=== PATIENT | male | born 2000 | race Caucasian/White ===

== ENCOUNTER 2022-11-14 08:41 | Emergency (ER) | payer BC, SELFPAY ==
[2022-11-14 08:58] VITALS: BP 132/88; PULSE 73; RESP 18; TEMP 36.4; O2SAT 100
[2022-11-14 08:59] VITALS: BP 132/88; PULSE 73; RESP 18; TEMP 36.4; O2SAT 100
--- NOTE | 2022-11-14 09:05 | ED.URI ---
HPI - URI/Sore Throat General Chief Complaint: Upper Respiratory Infection Stated Complaint: Sinus Infecton Time Seen by Provider: 11/14/22 09:00 Source: patient and RN notes reviewed Mode of arrival: ambulatory Limitations: no limitations History of Present Illness HPI Narrative: Patient presents today complaining of a 10 day history of sinus pressure, nasal congestion, postnasal drip. She did have a fever initially up to 101.3, but it has not been present for 1 week. She has been taking Sudafed, which has been providing some relief. 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 Related Data Home Medications Medication Instructions Recorded Confirmed norethindrone acetate 1.5 1 tablet PO DAILY 11/14/22 11/14/22 mg-ethinyl estradiol 30 mcg tablet (Junel) sertraline 200 mg capsule 200 mg PO DAILY 11/14/22 11/14/22 Allergies Allergy/AdvReac Type Severity Reaction Status Date / Time No Known Allergies Allergy Verified 11/14/22 08:56 Review of Systems Review of Systems: CONSTITUTIONAL: Denies body aches, chills, or sweats.+ fever EYES: Denies visual changes, redness, or discharge. ENT: Denies rhinorrhea, sore throat, or otalgia.+ congestion, sinus pressure, postnasal drip CARDIOVASCULAR: Denies chest pain, palpitations, or edema. RESPIRATORY: Denies cough or dyspnea. GASTROINTESTINAL: Denies abdominal pain, nausea, vomiting, or diarrhea. GENITOURINARY: Denies dysuria or hematuria. SKIN: Denies rash, itching, or wounds. MUSCULOSKELETAL: Denies back pain, joint pain, or myalgia. NEUROLOGIC: Denies headache, numbness, tingling, or weakness. PSYCH: Denies depression or anxiety. PMFSH Comments At time of signature, I have reviewed and agree with nursing past medical, surgical, social and family history unless otherwise noted. Please see nursing chart for further information. There is no relevant family history pertinent to the presenting complaint Exam Narrative: GENERAL: Mildly ill-appearing, well-nourished, and in no acute distress. HEAD: Normocephalic, atraumatic. EYES: EOMI. No redness or drainage. Conjunctivae normal. ENT: Mucous membranes pink and moist. Nares congested with rhinorrhea. TMs normal bilaterally. Throat normal. Uvula midline. Frontal and maxillary sinus tenderness. NECK: Normal AROM. Supple. No lymphadenopathy. CHEST: No respiratory distress. Clear to auscultation. HEART: Regular rate and rhythm. No murmur appreciated. EXTREMITIES: Normal range of motion. No edema. SKIN: Warm, dry, no rash. Capillary refill normal. Normal skin turgor. NEURO: No focal deficits. Alert and oriented x3. Gait steady. PSYCH: Normal affect. No signs of depression or anxiety. Course Course Level of Care: Express Care Visit Vital Signs Vital signs: Vital Signs Temperature 97.5 F L 11/14/22 08:58 Pulse Rate 73 11/14/22 08:58 Respiratory Rate 18 11/14/22 08:58 Blood Pressure 132/88 11/14/22 08:58 Pulse Oximetry 100 11/14/22 08:58 Oxygen Delivery Room Air 11/14/22 08:58 Temperature 97.5 F L 11/14/22 08:59 Pulse Rate 73 11/14/22 08:59 Respiratory Rate 18 11/14/22 08:59 Blood Pressure 132/88 11/14/22 08:59 Pulse Oximetry 100 11/14/22 08:59 Oxygen Delivery Room Air 11/14/22 08:59 Reviewed. Pt has been instructed to follow up with her PCP regarding her elevated blood pressure today. MDM - URI/Sore Throat MDM Narrative Medical decision making narrative: Patient will be treated with Augmentin for sinusitis. No testing indicated at this time. Anticipatory guidance given. Differential Diagnosis Differential diagnosis: Likely upper respiratory infection, sinusitis and viral infection Critical Care Time Critical Care Time Critical Care Time: No Discharge Plan Discharge Clinical Impression: Sinusitis Qualifiers: Sinusitis location: unspecified location Chronicity: acute Recurrence: non-recurrent Qualified Code(s): J01.90
== END 2022-11-14 09:11 | disposition home or self-care (01) ==
PROVIDERS: Emergency Provider Nurse Practitioner
DX: J01.90 Acute sinusitis, unspecified (principal)
CPT/HCPCS: 99213; G0463

== ENCOUNTER 2024-06-09 08:13 | Outpatient (RCR) | payer BC, SELFPAY ==
[2024-06-09 09:15] LABS: Beta HCG Quantitative 315.26 mIU/ML
== END 2024-09-07 23:59 | disposition home or self-care (01) ==
LOC: ANHOBOP 08:13
PROVIDERS: PCP Physician Assistant; Visit Provider Obstetrics & Gynecology
DX: Z36.9 Encounter for antenatal screening, unspecified (principal)
CPT/HCPCS: 36415; 84702

== ENCOUNTER 2024-06-11 07:47 | Outpatient (RCR) | payer BC, SELFPAY ==
[2024-06-07 17:16] LABS: Beta HCG Quantitative 182.61 mIU/ML
[2024-06-11 08:45] LABS: Beta HCG Quantitative 655.86 mIU/ML
== END 2024-06-20 09:08 | disposition home or self-care (01) ==
LOC: ANHLAB 07:47
PROVIDERS: Visit Provider Obstetrics & Gynecology
DX: O36.0130 Maternal care for anti-D [Rh] antibodies, third trimester, not applicable or unspecified (principal); O20.0 Threatened abortion
CPT/HCPCS: 36415; 84702; 85461; 86850; 86900; 86901

== ENCOUNTER 2024-06-22 06:45 | Outpatient (RCR) | payer BC, SELFPAY ==
[2024-06-20 10:19] LABS: Beta HCG Quantitative 4787.20 mIU/ML
[2024-06-22 08:00] LABS: Beta HCG Quantitative 4471.00 mIU/ML
== END 2024-09-18 23:59 | disposition home or self-care (01) ==
LOC: ANHLAB 06:45
PROVIDERS: PCP Physician Assistant; Visit Provider Obstetrics & Gynecology
DX: O02.81 Inappropriate change in quantitative human chorionic gonadotropin (hCG) in early pregnancy (principal)
CPT/HCPCS: 36415; 84702

== ENCOUNTER 2024-06-24 15:34 | Outpatient (CLI) | payer BC, SELFPAY ==
--- OUTSIDE RECORDS SUMMARY | 2024-06-24 17:30 | XMS_ITS | Referral Summary ---
Author Organization [address] Address [address] [place] [phone] Care Team Providers Care Nutrition Technician Name Role Phone Radha Tavarez Primary Care Provider [phone] Encounters Date Type Department Care Team Description 05/13/2024 2:30 PM CDT Office Visit [facility] Family Medicine [address] [place] [phone] Radha Tavarez PA Routine adult health maintenance (Primary Dx); Mild episode of recurrent major depressive disorder; FREEMAN (generalized anxiety disorder); Migraine without aura and without status migrainosus, not intractable from Last 3 Months Allergies No known active allergies Medications multivitamin (MULTIPLE VITAMINS ORAL) Take 1 tablet by mouth daily Active pseudoephedrine (SUDAFED) 30 mg tablet Take 1 tablet (30 mg total) by mouth every 4 (four) hours as needed for congestion Active rimegepant (NURTEC ODT) tablet,disinteg rating Take 1 tablet (75 mg total) by mouth daily as needed 3 Active SUMAtriptan (IMITREX) 50 mg tablet Take 1 tablet (50 mg total) by mouth Active sertraline (ZOLOFT) 100 mg tabletIndicatio ns:Mild episode of recurrent major depressive disorder,FREEMAN (generalized anxiety disorder) Take 2 tablets (200 mg total) by mouth daily 180 tablet 3 5 Active Active Problems Problem Noted Date Diagnosed Date Migraine without aura and wi thout status migrainosus, not intractable 04/17/2023 Assessment & Plan (05/13/2024 2:52 PM CDT): Chronic and improved now that her stress level is much lower. No longer has to follow with ENT or take propranolol for prevention. Continue sumatriptan Nurtec as needed. She can reach out to me for refills as needed. Assessment & Plan (04/17/2023 9:24 AM COFFIN MAKER): Chronic. Managed by ENT. Continue current management with propranolol for prevention and Nurtec and sumatriptan as needed. Follow-up with ENT as scheduled. Update me with any changes. FREEMAN (generalized anxiety disorder) 04/17/2023 Assessment & Plan (05/13/2024 2:47 PM CDT): Chronic and controlled. Continue Zoloft 200 mg daily. Follow-up in 1 year sooner as needed. Assessment & Plan (04/17/2023 9:23 AM COFFIN MAKER): Chronic and controlled. Continue Zoloft 200 mg daily. Handout provided today with a list of counselors, should she want to explore this. Follow-up in 1 year sooner as needed. Mild episode of recurrent major depressive disor scotty 04/17/2023 Assessment & Plan (05/13/2024 2:47 PM CDT): Chronic and controlled. Continue Zoloft 200 mg daily. Follow-up in 1 year sooner as needed. Assessment & Plan (04/17/2023 9:24 AM COFFIN MAKER): Chronic and controlled. Continue Zoloft 200 mg daily. Handout provided today with a list of counselors, should she want to explore this. Follow-up in 1 year sooner as needed. Routine adult health maintenance 04/14/2023 Overview (05/13/2024): Health Maintenance: -PCV20: N/A -Tdap vaccine: 2020 -Influenza vaccine: due -Shingles vaccine: N/A -Colonoscopy: N/A -Last WWE: 12/29/22 -Last Mammogram: N/A -Last DEXA: N/A -Last eye exam: N/A -Last MHA: N/A Assessment & Plan (05/13/2024 2:52 PM CDT): Health Maintenance: -PCV20: N/A -Tdap vaccine: 2020 -Influenza vaccine: due -Shingles vaccine: N/A -Colonoscopy: N/A -Last WWE: 12/29/22 -Last Mammogram: N/A -Last DEXA: N/A -Last eye exam: N/A -Last MHA: N/A Patient is up-to-date on health maintenance. Continue with healthy diet and exercise habits. See me annually for routine physicals. Assessment & Plan (04/17/2023 9:24 AM COFFIN MAKER): Health Maintenance: -PCV20: N/A -Tdap vaccine: 2020 -Influenza vaccine: 2022 -Shingles vaccine: N/A -Colonoscopy: N/A -Last WWE: 12/29/22 -Last Mammogram: N/A -Last DEXA: N/A -Last eye exam: N/A -Last MHA: N/A Patient is up-to-date on health maintenance. Annual labs ordered. Continue with healthy diet and exercise habits. See me annually for routine physicals. Immunizations Immunization Administration Dates Next Due DTaP 12/14/2002, 0,04/24/1999,02/01,1998 HPV, Unspecified 09/20/2016,08/19/2015 HPV9 11/04/2017 Hep A, Pediatric 12/09/2010,06/02/2010 Hep B Vaccine 07/31/1999,02/01/1999,1998 HiB 02/02/2000, 0,02/01/1999,11/30 Influenza LAIV (Nasal) 11/19/2011,12/09/2010, Influenza, Live, Trivalent, Intranasal 2,12/09/2010,12/23/2009 Influenza, Quadrivalent, Spl it, Intramuscular 11/04/2017 Influenza, Quadrivalent, Spl it, Preservative Free, Intramuscular 12/27/2021,01/25/2021,01/29/2020,12/30 Influenza, Trivalent, IM (MDV) 12/30/2018 Influenza, Unspecified 01/18/2024(Deferr ed: Patient Refused),02/17/2023 MMR 09/20/2016,09/02/2003,10/18/1999 Meningococcal MCV4P (Menactra) 08/19/2015,1999 PPD TEST 08/27/2019,08/01/2017,10/18/1999 Polio, Unspecified 12/14/2002, 0,02/01/1999,11/27 Tdap 06/05/2019,10/14/2009 Varicella 08/17/2012,10/18/1999 Social History Tobacco Use Types Packs/Day Years Used Date Smoking Tobacco: Never Smokeless Tobacco: Never Tobacco Cessation:Counseling Given: Not Answered AUDIT-C Answer Date Recorded Q1: How often do you have a drink containing alc ohol? Monthly or less 04/17/2023 Q2: How many drinks containi ng alcohol do you have on a typical day when you are drinking? 3 or 4 04/17/2023 Q3: How often do you have si x or more drinks on one occasion? Never 04/17/2023 PHQ-2 Answer Date Recorded PHQ-2 Total Score (If total score is 3 or more points, staff should administer the PHQ-9) 0 05/13/2024 PHQ-9 Answer Date Recorded PHQ-9 Total Score 2 05/13/2024 Comments No Sex and Gender Information Value Date Recorded Sex Assigned at Not on file Legal Sex Female 12:21 PM COFFIN MAKER Gender Identity Female 04/14/2023 2:49 PM COFFIN MAKER Sexual Orientation Straight 04/14/2023 2: 49 PM COFFIN MAKER Last Filed Vital Signs Vital Sign Reading Time Taken Comments Blood Pressure 120/84 05/13/2024 2:37 PM CDT Pulse 85 05/13/2024 2:37 PM CDT Temperature 36.7 C (98.1 F) 05/13/2024 2:37 PM CDT Respiratory Rate 18 05/13/2024 2:37 PM CDT Oxygen Saturation 97% 05/13/2024 2:37 PM CDT Inhaled Oxygen Concentration - - Weight 68.9 kg (152 lb) 05/13/2024 2:37 PM CDT Height 167.6 cm (5' 6 ) 05/13/2024 2:37 PM CDT Body Mass Index 24.53 05/13/2024 2:37 PM CDT Plan of Treatment Not on file Procedures Procedure Name Priority Date/Time Associated Diagnosis Comments PAP SMEAR Routine 12/29/2022 from Last 3 Months or Most Recently Relevant to Health Maintenance Results * HM PAP SMEAR (12/29/2022) SCRIBED Pap test normal Thin Prep-Cervical/ Endocervical [facility] Provider MD HEALTH MAINTENANCE Final Result from Last 3 Months or Most Recently Relevant to Health Maintenance Insurance [employer] ACCESS Care Teams Nutrition Technician Relationship Specialty Start Date End Date Radha Tavarez PA [address] [place], [place] [address] PCP - General Family Medicine 04/04/23
--- OUTSIDE RECORDS SUMMARY | 2024-06-24 17:30 | XMS_ITS | Data Portability ---
Author Organization [facility], autoContract - [facility] Address [address] [place] [address] Care Team Providers Care Sales Merchandiser Name Role Phone ALYMARILYN CEBALLOS Primary Care Provider Assessment No assessment recorded. Plan of Treatment Reminders Order Date Submit Date Provider Last Modified By Organization Details Last Modified Time Details Appointments None recorded. Lab None recorded. Referral None recorded. Procedures None recorded. Surgeries None recorded. Imaging None recorded. Medication Orders sertraline 100 mg tablet 2022 023 [id number] [employer], [address], [place], [address], 17:55:42 Patient TargetsNo targets recorded. Patient InstructionsNo instructions recorded. Reason for Referral None Reported. Problems No Known Problems Medical Equipment None Reported. Allergies No known drug allergies Medications Name Sig Start Date Stop Date Status Note LastModified by Organization Details LastModified Time sertraline 100 mg tablet TAKE 2 TABLETS BY MOUTH EVERY DAY FOR 90 DAYS active Not Available Not Available No t Available sumatriptan 50 mg tablet TAKE 1 TABLET BY MOUTH ONCE A DAY NEEDED active Not Available Not Available No t Available amoxicillin 875 mg-potassium clavulanate 125 mg tablet active Not Available Not Available Not Available 1.5/30 (28) 1.5 mg-30 mcg (21)/75 mg (7) tablet TAKE 1 TABLET BY MOUTH EVERY DAY CONTINUOUSL Y FOR 12 WEEKS ON 1 WEEK OFF active Not Available Not Available No t Available Vitals Date Recorded Body weight Body temperature Heart rate Respiratory rate Oxygen saturation Oxygen saturation in Arterial blood by Pulse oximetry Body mass index (BMI) Body height Systolic blood pressure Diastolic blood pressure Provider Name and Address Organization Details Last Updated DateTime 3 88351.4 4 g 98.2 [degF] 82 /min 18 /min 99 % 99 % 24.6 kg/m2 167.64 cm 100 mm[Hg] 60 mm[Hg] Myesha Connor LPN [facility] 3 17:29:22 Social History None recorded. Functional Status None recorded. Mental Status None recorded. Family History Nothing Reported Notes:Denies Medical History Condition Response ANXIETY DISORDER Y DEPRESSION (INCLUDING POST ) Y Gynecological History Statement/Question Response Date of Last Pap Smear Obstetrics History GPAL:G 0 P 0 0 0 0 Past Encounters Encounter ID Performer Location Encounter Start Date Encounter Closed Date Diagnosis/Indication Diagnosis SNOMED-CT Code Diagnosis ICD10 Code Diagnosis Note [id number] Marilyn Aly NP [facility] [address] [facility] [place] [id number] 05/12/2022 17:16:37 05/12/2022 18:02:42 Depressive disorder 84098157 F32.A continue with sertraline 100 mg, 2 tablets daily po fu in 6 mos Health Concerns Section Related Observation LastModified by Organization Detai ls LastModified Time None Recorded Concern Status LastModified by Organization Details LastModified Time None Recorded Advance Directives Directive None Recorded Payers Encounter Date Sequence Insurance Name Policy Number Policy Rodrigues Covered Member ID Rodrigues Member ID Guarantor Name 05/12/2022 1 [place] [id number] Blake Weber [id number] Isabella Weber Notes Date Note Type Note Provider Name and Address Organization Details Recorded Time 05/12/2022 text/html establish care b p 100/60, BMI 24.6, pt needs medication refills, pt has been on sertraline 200 mg since 2018, and is symptoms stable, pt sees deep sea diver for bcp Marilyn Aly NP [address] [facility] [address], [place], [phone], [facility] 05/12/2022 18:00:35 OBGyn Episode No OBEpisode recorded.
--- OUTSIDE RECORDS SUMMARY | 2024-06-24 17:30 | XMS_ITS | Clinical Summary ---
Author Organization [address] Address [address] [place] [phone] Care Team Providers Care Summer Law Associate Name Role Phone Radha Tavarez Primary Care Provider [phone] [phone] Allergies No known active allergies Medications multivitamin [...] needed. Assessment & Plan (04/17/2023 9:24 AM SERVICE GIRL): Chronic. Managed by ENT. Continue current management with propranolol for prevention and Nurtec and sumatriptan as needed. Follow-up with ENT as scheduled. Update me with any changes. FREEMAN (generalized anxiety disorder) 04/17/2023 Assessment & Plan (05/13/2024 2:47 PM CDT): Chronic and controlled. Continue Zoloft 200 mg daily. Follow-up in 1 year sooner as needed. Assessment & Plan (04/17/2023 9:23 AM SERVICE GIRL): Chronic and controlled. Continue Zoloft 200 mg [...] needed. Assessment & Plan (04/17/2023 9:24 AM SERVICE GIRL): Chronic and controlled. Continue Zoloft 200 mg [...] physicals. Assessment & Plan (04/17/2023 9:24 AM SERVICE GIRL): Health Maintenance: -PCV20: N/A -Tdap vaccine: 2019 -Influenza vaccine: 2022 -Shingles vaccine: N/A -Colonoscopy: N/A -Last WWE: 12/29/22 -Last Mammogram: N/A -Last DEXA: N/A -Last eye exam: N/A -Last MHA: N/A Patient is up-to-date on health maintenance. Annual labs ordered. Continue with healthy diet and exercise habits. See me annually for routine physicals. Encounters Date Type Department Care Team Description 05/13/2024 2:30 PM CDT Office Visit [facility] Family Medicine [address] [place] [phone] Radha Tavarez PA Routine adult health maintenance (Primary Dx); Mild episode of recurrent major depressive disorder; FREEMAN (generalized anxiety disorder); Migraine without aura and without status migrainosus, not intractable from Last 3 Months Immunizations Immunization Administration Dates Next Due DTaP [...] Unspecified 12/14/2002, 0,02/01/1999,11/27 Tdap 06/05/2019,10/14/2009 Varicella 08/17/2012,10/18/1999 Medical History Medical History Date Comments Anxiety Depression Migraines Family History Medical History Relation Name Comments ADD / ADHD Brother No Known Problems Father Alzheimer's disease Maternal Grandfather Grandpa Hearing loss Maternal Grandmother Grandma Mary Jo No Known Problems Mother Cancer Paternal Grandmother Grandma Gladis Relation Name Status Comments Brother Alive Father Alive Maternal Grandfather Grandpa Maternal Grandmother Grandma Mary Jo Mother Alive Paternal Grandmother Grandma Gladis Social History Tobacco Use Types Packs/Day Years [...] on file Legal Sex Female 12:21 PM SERVICE GIRL Gender Identity Female 04/14/2023 2:49 PM SERVICE GIRL Sexual Orientation Straight 04/14/2023 2: 49 PM SERVICE GIRL Obstetrics History Last Filed Vital Signs Vital Sign Reading [...] 05/13/2024 2:37 PM CDT Plan of Treatment Health Maintenance Due Date Last Done Comments Hepatitis C Screening 1998 Covid-19 Vaccine ( season) 2023 01/25/2021, 06/22/2020, 05/19/2020 Influenza Vaccine (#1) 2023 , 12/27/2021, 01/25/2021, Additional history exists Depression Screening 05/13/2025 05/13/2024, 05/13/2024, 04/17/2023, Additional history exists Regular Well Visit/Exam 18-64 05/13/2025 05/13/2024, 04/17/2023 Cervical Cancer Screening 12/29/2025 12/29/2022 DTaP/Tdap/Td Vaccine (8 - Td or Tdap) 06/04/2029 06/05/2019, 10/14/2009, 12/14/2002, Additional history exists Hepatitis B Screening Completed 07/31/1999 , 02/01/1999, 1998 Varicella Vaccines Completed 08/17/2012, 10/18/1999 HPV Vaccines Completed 11/04/2017, 09/03, 08/19/2015 Pneumococcal vaccine <65 Aged Out No longer eligible based on patient's age to complete this topic Procedures Procedure Name Priority Date/Time Associated Diagnosis Comments HM PAP SMEAR Routine 12/29/2022 from Last 3 Months or Most Recently Relevant to Health Maintenance Results * HM PAP SMEAR (12/29/2022) SCRIBED Pap test normal Thin Prep-Cervical/ Endocervical us Historical Provider MD HEALTH MAINTENANCE Final Result from Last 3 Months or Most Recently Relevant to Health Maintenance Insurance [employer] ACCESS Care Teams Summer Law Associate Relationship Specialty Start Date End Date Radha Tavarez PA [address] [place], [place] [phone] PCP - General Family Medicine 04/04/23
--- OUTSIDE RECORDS SUMMARY | 2024-06-24 17:30 | XMS_ITS | Clinical Summary ---
Author Organization [facility] Address [address] [place] [address] Care Team Providers Care Sulfonation Equipment Operator Name Role Phone None, Physician Primary Care Provider Unavailabl e Source Comments [facility],non-owned Affiliates and Associated Physician Practices is amultiple site organization consisting of ambulatory clinics and hospital sitesin [place], [place], [place] and [place]. This disclosure is being madepursuant to the Care Everywhere program and may not contain all information available regarding this patient. Last updated 17.[employer] [facility] Allergies No known active allergies Medications * Be aware that medications may not be up to date on this document. Alwaysverify current medications with the patient. sertraline (Zoloft) 100 MG tablet Take 2 (two) tablets by mouth once daily Active norethin-eth estradiol-FE ([place] Fe 1.5/30) 1.5-30 MG-MCG tablet Take 1 (one) tablet by mouth once daily Active Multiple Vitamin (MULTIVITAMIN ADULT PO) Take 1 tablet by mouth once daily Active SUMAtriptan (Imitrex) 50 MG tablet Take 1 (one) tablet by mouth daily as needed - may repeat one time for Migraine Maximum daily dose: 200mg/24 hours Active pseudoephedrine (Sudafed) 30 MG tablet Take 1 (one) tablet by mouth every 4 hours as needed for Nasal Congestion Active rizatriptan (Maxalt) 10 MG tablet Take 1 tab at the onset of migraine, may repeat x 1 dose after 2 hours if needed. Not to exceed more than 2 tabs in 24 hours. 10 tablet 3 3 Active Additional Information Patient taking differently: 10 mg Oral ONCE PRN, Take 1 tab at the onset of migraine, may repeat x 1 dose after 2 hours if needed. Not to exceed more than 2 tabs in 24 hours., Reported on 02/16/2023 fluticasone propionate (Flonase) 50 MCG/ACT nasal spray [place] 2 (two) sprays into each nostril once daily 48 g 4 3 Active propranolol (Inderal) 10 MG tablet TAKE 1 (ONE) TABLET BY MOUTH 2 TIMES DAILY 180 tablet 1 4 Active Nurtec 75 MG tablet DISSOLVE 1 TABLET ON OR UNDER THE TONGUE ONCE A DAY NEEDED FOR MIGRAINE (. MAX OF 1 TABLET IN 24 HOURS) 16 tablet 3 4 Active Active Problems No known active problems Encounters Date Type Department Care Team Description 04/19/2024 Refill [facility] - ENT [address], [address] [place] [address] Krysten Rausch, KUAR-INSURANCE BILLING CLERK Refill Request from Last 3 Months Family History Medical History Relation Name Comments Hyperlipidemia Father Hypertension Father Relation Name Status Comments Father Social History Tobacco Use Types Packs/Day Years Used Date Smoking Tobacco: Never Smokeless Tobacco: Never Tobacco Cessation:Counseling Given: Not Answered Alcohol Use Standard Drinks/Week Comments Yes 1 (1 standard drink = 0.6 oz pur e alcohol) 4 monthly Comments Unknown Sex and Gender Information Value Date Recorded Sex Assigned at Not on file Legal Sex Female 11:43 AM CDT Gender Identity Not on file Sexual Orientation Not on file Last Filed Vital Signs Vital Sign Reading Time Taken Comments Blood Pressure 136/86 12/22/2022 9:01 AM CDT Pulse 96 12/22/2022 9:01 AM CDT Temperature - - Respiratory Rate - - Oxygen Saturation - - Inhaled Oxygen Concentration - - Weight 68 kg (150 lb) 02/16/2023 9:17 AM MANAGER ONCOLOGY Height 167.6 cm (5' 6 ) 02/16/2023 9:17 AM MANAGER ONCOLOGY Body Mass Index 24.21 02/16/2023 9:17 AM MANAGER ONCOLOGY Plan of Treatment Health Maintenance Due Date Last Done Comments PAP SMEAR 1998 HIV SCREENING 2013 HPV VACCINE (1 - 3-dose series) 2013 HEPATITIS C SCREENING 10/08/2016 DTAP/TDAP/TD VACCINES (1 - Tdap) 2017 HEPATITIS B VACCINE (1 of 3 - 19+ 3-dose series) 2017 COVID-19 VACCINE (1 - 2023-2 5 season) 2023 CHLAMYDIA/GONORRHEA SCREENING 12/30/2023, 12/29/2022 DEPRESSION SCREENING 03/06/2024 INFLUENZA VACCINE (Season Ended) 2024 ZOSTER VACCINE (1 of 2) 2048 HIB VACCINE Aged Out No longer eligi ble based on patient's age to complete this topic MENINGOCOCCAL (Group B) VACCINE SHARED DECISION-MAKING Aged Out No longer eligible based on patient's age to complete this topic MENINGOCOCCAL GROUPS A/C/Y/W VACCINE Aged Out No longer eligible b ased on patient's age to complete this topic PNEUMOCOCCAL VACCINE Aged Out No long er eligible based on patient's age to complete this [place] [id number] MARIANO MARIANO Care Teams Sulfonation Equipment Operator Relationship Specialty Start Date End Date None, Physician [address] [place] [address] PCP - General 12/22/22
--- OUTSIDE RECORDS SUMMARY | 2024-06-24 17:30 | XMS_ITS | Data Portability ---
Author Organization [facility] [place] Address [address] [address] [place] [address] Care Team Providers Care Oil Burner Name Role Phone KATH SIMON Primary Care Provider Assessment Encounter Date Assessment Date Assessment LastModified by Organization Details LastModified Time 12/29/2022 12/29/2022 Annual gynecological exam performed. Patient will come back in a year unless there are new symptoms. Not available 12/29/2022 10:43:03 02/09/2024 02/09/2024 Annual gynecological exam performed. Patient will come back in a year unless there are new symptoms. [email or web address] Not available 02/09/2024 11:04:31 Plan of Treatment Reminders Order Date Submit Date Provider Last Modified By Organization Details Last Modified Time Details Appointments FOLLOW UP 2024 08:30A Kimberly RIVERA MD Not available Not available Not available U/S OB SNEAK PEAK 2024 08:30A M ULTRASOUND Not available Not available Not available OB SCREEN 2024 09:00A Kimberly RIVERA MD Not available Not available Not available Lab pregnan cy test, urine 2022 023 [place], [address], [address], [place], [address], 12/29/2022 10:59:31 Referral pelvic floor therapy referra l 2023 024 JEM [facility], [address], [address], [place], [address], 02/22/2024 05:35:18 Procedures None recorde d. Surgeries None recorde d. Imaging US, obstetr ic, transva ginal 2024 025 [email or web address] [place], [address], [place], [address], 06/20/2024 18:27:06 Medication Orders Blisovi Fe 1.5/30 (28) 1.5 mg-30 mcg (21)/75 mg (7) tablet 2022 023 [email or web address] [id number] In [facility], [address], [place], [address], 02/09/2024 12:19:22 Patient TargetsNo targets recorded. Patient InstructionsNo instructions recorded. Reason for Referral Pelvic Floor Therapy Referra l for Female stress incontinence Referring Physician: Loren Valderrama, BROWNELL OPERATOR, Encounter Date: 02/09/2024 Results Created Date Observation Date Name Description Value Unit Range Abnormal Flag Note LastModifiedBy Organization Detail LastModifiedTime 12/30/19 23 12/29/2022 IMAGE GUIDE D PAP, REFLE X HPV IF ASCUS ONLY image guided Pap, reflex HPV ASCUS only SEE RESULT S BELOW CASE REPOR T: Cytol ogy Gynec ologi jefferson Repor t Case: [id number] [facility]ho [facility] g Provi scotty: Loren Valderrama, KLAUDIA Colle cted: 12/29 1547 Order ing Locat ion: [place] [facility] Recei roberto: 12/30 0948 First Scree n: Elvis Hager am, CT Speci men: Scree inderjit Pap - Image d, Cervi x STATE MENT OF ADEQU ACY: Satis facto ry for evalu ation Trans forma tion zone compo nent prese nt FINAL DIAGN OSIS: Negat emelia for Intra epith elial Lesio n or Tania rodríguez (NIL) . Elect aisha oneal alexis d by Elvis Hager am, CT on 2022 at 8:42 AM ----- ----- ----- ----- ----- ----- ----- ----- ----- ----- ----- ----- ----- ----- ----- ----- ----- ---- COMME NT: This speci men was revie wed by a Cytot echno logis t and/o r Patho logis t (as indic ated in this repor t) after evalu ation using the Thinp rep Imagi ng Syste m. CLINI JEFFERSON INFOR MATIO N: Menst rual Statu s: LMP (if appli cable ): Clini jefferson Histo ry/Pr eviou s Pap: Type of Neopl shemar (if appli cable ): Signi fican t Clini jefferson Findi ngs: Other Histo ry: Hormo ofelia (if appli cable ): PAP EDUCA LACHO L NOTE: The Pap Test is a scree inderjit test with an inher ent false negat emelia rate. Liqui d-bas ed sampl ing may decre ase, but will not elimi vanessa, false negat emelia resul ts. A negat emelia resul t does not precl ude the prese nce and/o r devel opmen t of disea se, since the prese nce of abnor mal cells in the sampl e depen ds on the locat ion of the lesio n and sampl ing techn ique. Nava nued regul ar scree inderjit is the best metho d of cance r preve ntion . If repor marco a cytol ogic findi ng do not corre late with physi jefferson and/o r histo rical findi ngs, furth er inves tigat ion is recom mounika d, as giorgi so nted. Not Available [facility] (Lab) [address], [place], [address], 01/04/2023 09:46:52 12/30/19 23 12/29/2022 CT/GC (AYALA) , THINP REP VIAL chlamydia trachomatis, PCR Negati ve negati ve Not Available [facility] (Lab) [address], [place], [address], 01/04/2023 09:46:53 12/30/1912/29/2022 CT/GC (AYALA) , THINP REP VIAL neisseria gonorrhoeae, PCR Negati ve negati ve Not Available [facility] (Lab) [address] [facility], [place], [address], 01/04/2023 09:46:53 12/30/1912/29/2022 TRICH OMONA S VAGIN DL (RRNA ) trichomonas vaginalis ribosomal RNA (rrna) Negati ve negati ve Not Available [facility] (Lab) [address] [facility] [facility], [place], [address], 01/04/2023 09:46:54 12/30/1912/29/2022 pregn kolton test, urine HCG negati ve Not Available [place] [address], [place], [address], 12/29/2022 10:56:26 06/21/19 25 06/20/2024 US, obste tric, trans vagin al No observ ation record ed. [facility] [address], [place], [address], 06/20/2024 13:54:18 06/21/19 25 06/20/2024 US, obste tric, trans vagin al No observ ation record ed. [email or web address] [address], [place], [address], 06/20/2024 21:33:14 Result Notes None recorded. Procedures Surgical History Date Name Laterality Status Provider Name and Address Organization Details Recorded Time 12/29/2022 Date of Last Pap Smear completed Meli Morejon [facility] 02/09/2024 11:05:55 Imaging Results Imaging Date Name Status LastModified by Organization Details LastModified Time 06/20/2024 US, obstetric, transvaginal completed [facility] [address], [place], [address], 06/20/2024 13:54:18 06/20/2024 US, obstetric, transvaginal active [email or web address] [facility] [address], [place], [address], 06/20/2024 21:33:14 Procedure Notes None recorded. Medical Equipment None Reported. Allergies No known drug allergies Medications Name Sig Start Date Stop Date Status Note LastModified by Organization Details LastModified Time status covid-19/fl u a-b antigen tst TEST DIRECTED TODAY 02/08 completed Not Available Not Available Not Available rizatriptan 10 mg tablet PLEASE SEE ATTACHED FOR DETAILED DIRECTION S 02/05 completed Not Available Not Available Not Available sertraline 100 mg tablet TAKE 2 TABLETS BY MOUTH DAILY active Not Available Not Available No t Available propranolol 10 mg tablet TAKE 1 (ONE) TABLET BY MOUTH 2 TIMES DAILY 02/05 completed Not Available Not Available Not Available scopolamine 1 mg over [address] 1 PATCH ON THE SKIN EVERY THIRD DAY NEEDED FOR NAUSEA 02/05 completed Not Available Not Available Not Available 1.5/30 (28) 1.5 mg-30 mcg (21)/75 mg (7) tablet TAKE 1 TABLET BY MOUTH EVERY DAY 02/08 completed Not Available Not Available Not Available sertraline 200mg daily 02/05 completed Not Available Not Available Not Available [facility] 75 mg disintegrat ing tablet active Not Available Not Available N ot Available Vitals Date Recorded Body weight Body mass index (BMI) Body height Systolic blood pressure Diastolic blood pressure Provider Name and Address Organization Details Last Updated DateTime 12/29/2022 16192.88 g 24.4 kg/m2 167.64 cm 119 mm[Hg] 85 mm[Hg] Mayte Brennan [facility] 10:47:27 Date Recorded Body height Body mass index (BMI) Body weight Systolic blood pressure Diastolic blood pressure Provider Name and Address Organization Details Last Updated DateTime 02/09/2024 167.64 cm 24.4 kg/m2 75402.45 g 119 mm[Hg] 83 mm[Hg] Meli Morejon [facility] 12:19:16 Social History Question Answer Notes LastModified by Organizat ion Details LastModified Time Tobacco Smoking Status Never Smoker Mayte Brennan camron, [facility] 12/29/2022 10:50:07 Do You Have An Advance Directive? No Information not available 12/29/2022 What Is Your Level Of Alcohol Consumption? Occasional Information not available 12/29/2022 How Many Years Have You Consumed Alcohol? 4 [email or web address] Information not available 02/09/2024 Are You Blind Or Do You Have Difficulty Seeing? No Information not available 12/29/2022 What Is Your Level Of Caffeine Consumption? Moderate Information not available 12/29/2022 How Much Tobacco Do You Chew? None Information not available 12/29/2022 In The 14 Days Before Symptom Onset, Have You Had Close Contact With A Laboratory-confir med COVID-19 While That Case Was Ill? No Information not available 12/29/2022 In The 14 Days Before Symptom Onset, Have You Had Close Contact With A Person Who Is Under Investigation For COVID-19 While That Person Was Ill? No Information not available 12/29/2022 Have You Been To An Area Known To Be High Risk For COVID-19? No Information not available 12/29/2022 Are You Deaf Or Do You Have Serious Difficulty Hearing? No Information not available 12/29/2022 What Type Of Diet Are You Following? REGULAR Information not available 12/29/2022 What Is The Highest Grade Or Level Of School You Have Completed Or The Highest Degree You Have Received? 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 No Information not available 12/29/2022 Do You Use Protection During Sex? Usually [email or web address] Information not available 02/09/2024 Do You Use Your Seat Belt Or Car Seat Routinely? Yes Information not available 12/29/2022 Do You Have Smoke And Carbon Monoxide Detectors In Your Home? Yes Information not available 12/29/2022 How Much Tobacco Do You Smoke? No Information not available 12/29/2022 Do You Feel Stressed (tense, Restless, Nervous, Or Anxious, Or Unable To Sleep At Night)? [id number] Information not available 12/29/2022 Do You Use Any Illicit Or Recreational Drugs? Yes Information not available 12/29/2022 Do You Use Sunscreen Routinely? Yes Information not available 12/29/2022 Have You Used IV Drugs? No Information not available 12/29/2022 Sex: Unknown Functional Status Question Answer Note LastModified by Organizat ion Details LastModified Time Do you have difficulty walking or climbing stairs? No Information not available 12/29/2022 Are you able to walk? YESWOREST Information not available 12/29/2022 Are you able to care for yourself? Yes Information not available 12/29/2022 What is your exercise level? Occasional Information not available 12/29/2022 Mental Status None recorded. Family History Nothing Reported. Medical History Condition Response Anxiety Disorder Y History of STI Y Headaches Y Depression/ depression Y Gynecological History Statement/Question Response Abnormal Pap N Flow Heavy Date of LMP 02/03/2024 Was last menstrual period normal N STIs/STDs N HPV Vaccine Y Duration of Flow (days) 3 Current Control Method BCPs Are cycles usually normal N Sexually Active? Y BCPs Menses Monthly N Age of first menstrual cycle 11 Date of Last Pap Smear 12/29/2022 Sexual Problems? N Desired Control Method BCPs LMP Definite N Obstetrics History GPAL:G 0 P 0 0 0 0 Past Encounters Encounter ID Performer Location Encounter Start Date Encounter Closed Date Diagnosis/Indication Diagnosis SNOMED-CT Code Diagnosis ICD10 Code Diagnosis Note [id number] DARWIN Ward [place] [address] [address] 12/29/2022 10:13:38 12/29/2022 11:14:05 Irregular periods 44653248 N92.6 Gynecologi c examination 27353533 Z01.419 WWEBC - OCPhappy with this method and would like to continuede nies any contraindi cations, r/b/a reviewedre fills sent x 12 monthspap updatedSTI testing declinedRT C in 1 yr or sooner if needed Take Calcium with Vitamin D daily if not receiving in daily diet.It is strongly advised to have an annual flu shot and up can obtain at most pharmacies . If you have not had a TDap shot in the last 10 years you should obtain one as well.Discu ssed with patient & provided with informatio n regarding Gardisil vaccine to prevent the 4 strains for HPV that cause cervical cancer if under age 26.Encoura ge safe sexual practices, to use condoms and limit partners if not already in a monogamous relationsh ip.Do monthly self breast exams.Enga ge in daily exercise of low impact aerobic exercise 45-60 minutes 4-5 times weekly. Avoid tobacco and illicit drugs as well as using moderation with alcohol intake less than 1-2 8 oz beverages daily. This lifestyle behavior pattern will lead to less health conditions and longer life span. If BMI greater than 25 weight watchers or dietary consult advised.Gentry vogt received above instructio ns, and questions have been answered. If you have any questions please call or respond to this email.Rasheeda roberts was made aware of the patient portal and may obtain a paper copy of today's plan if desired. [facility] ion care management [id number] Z30.9 [id number] DARWIN Ward [place] [address] [address] 02/09/2024 12:07:15 02/12/2024 16:18:11 Gynecologic examination 64135190 Z01.419 Z11.3 Z11.8 WWEBC - declinedPa p - not indicated, due next screen - declinedRo utine labs - PCPRTC in 1 yr or sooner if needed It is strongly advised to have an annual flu shot and up can obtain at most pharmacies . If you have not had a TDap shot in the last 10 years you should obtain one as well. Discussed with patient & provided with informatio n regarding the HPV vaccine if applicable . Encourage safe sexual practices, to use condoms and limit partners if not already in a monogamous relationsh ip. Do monthly self breast exams. BRCA testing is now available for patients with strong genetic history of female cancer. If interested contact the office. Engage in regular exercise. Avoid tobacco and illicit drugs. This lifestyle behavior pattern will lead to less health conditions and longer life span. If BMI greater than 25 dietary consult advised. Questions answered. Female str ess incontinence 80280214 N39.3 management options reviewedre commended PFPT , referral placed , questions answered [id number] Ansley Marcano [place] [address] [address] 06/20/2024 09:23:28 06/20/2024 10:15:01 Uncertain viability of [id number] O36.80X0 Z3A.01 Health Concerns Section Related Observation LastModified by Organization Detai ls LastModified Time None Recorded Concern Status LastModified by Organization Details LastModified Time None Recorded Advance Directives Directive N: Payers Encounter Date Sequence Insurance Name Policy Number Policy Rodrigues Covered Member ID Rodrigues Member ID Guarantor Name 12/29/2022 1 [place] [id number] Blake Steelemary [id number] Isabella Dale Ivettesenabeel 02/09/2024 1 [place] [id number] Blake Steelemary [id number] Isabella Dale Xavierzosek 06/20/2024 1 [place] [id number] S Blas Bowie [id number] Isabella Weber Notes Date Note Type Note Provider Name and Address Organization Details Recorded Time 12/29/2022 text/html Annual GYNReport ed bypatient.Menstrual cycle:Normal menses Urinary symptoms:No hematuria; No incontinence Vulva:No genital lesion Vagina:Normal vaginal discharge Breast:No breast pain; No breast lump; No nipple discharge Current Contraception:Satisf ied with current contraception; Oral contraceptives Sexual complaints:No sexual complaints; No pain during intercourse; Normal libido Menopausal Symptoms:No menopausal symptoms; Normal vaginal lubrication Psychological symptoms:No depression; No anxiety; No PMDDNotes:no hx of abnormal papsdenies hx of DVT/PE, HTN, Stroke/MD, cancer, liver disease, or migraine with aura DARWIN Ward [address], [place], [address], [facility] 12/29/2022 11:10:47 02/09/2024 text/html Annual GYNReport ed bypatient.Menstrual cycle:Normal menses Urinary symptoms:No hematuria;Stress incontinence Vulva:No genital lesion Vagina:Normal vaginal discharge Breast:No breast pain; No breast lump; No nipple discharge Sexual complaints:No sexual complaints; No pain during intercourse; Normal libido Menopausal Symptoms:No menopausal symptoms; Normal vaginal lubrication Psychological symptoms:No depression; No anxiety; No PMDD Preventive measures:Encourage self breast examination; Encourage regular exercise; Encourage no tobacco use; Encourage regular mammograms starting age 40Notes:23yo wwelast pap 12/2022 : DARWIN Corey [address], [place], [address], [facility] 02/12/2024 14:43:59 OBGyn Episode No OBEpisode recorded.
== END 2024-06-24 15:35 | disposition home or self-care (01) ==
LOC: ANHLAB 15:38
PROVIDERS: PCP Physician Assistant; Visit Provider Obstetrics & Gynecology
DX: O20.0 Threatened abortion (principal); Z3A.00 Weeks of gestation of pregnancy not specified
CPT/HCPCS: 36415; 84702

== ENCOUNTER 2024-07-01 02:35 | Day surgery (SDC) | payer BC, SELFPAY ==
[2024-06-27 14:49] VITALS: BMI 24.3
--- NOTE | 2024-06-27 15:00 | PC.NURSE ---
Report to the Outpatient Waiting Room, entrance under the green pavilion located off [facility], at time __1000___ on date ___07/01/24___. Planned Procedure Time: __1200__.? Time changes happen often and if your time is changed the preop area will call you the afternoon before. - You and your visitor will be asked to self-screen and do not enter if you have any COVID symptoms. Please call surgeon if you need to reschedule. - A mask is optional within the hospital at this time. Patients may have clear liquids (water, carbonated beverages, clear teas, apple juice) until 3 hours prior to surgery with a maximum of 20 ounces. - No food from midnight until time of surgery and no smoking, or chewing tobacco (or any form of nicotine). No chewing gum, candy or mints. Take only the following medications with a SIP of water on the morning of surgery: ____sertraline____ DO NOT STOP ANY OF YOUR OTHER PRESCRIPTION MEDICATIONS PRIOR TO SURGERY EXCEPT THE FOLLOWING Hold all vitamins and supplements for 3 days per anesthesiologist. Please no make-up, nail djiboutian, hairspray, perfume, deodorant, or body powder the day of surgery.? No jewelry (including any body piercings) or valuables the day of surgery, leave them at home.? Please take a shower or bath the night before, or the morning of, surgery with an antibacterial soap.? Wear comfortable, loose fitting clothing.? - Jewelry must be removed prior to entering the operating room.? Rings and piercings that are not removed may be cut off. - The hospital will not accept responsibility for valuables.? - Please leave all valuables, including medications, at home the day of surgery. If you are going home after surgery, a licensed chuck wagon driver must drive you home.? - NO public transportation without another adult if you receive anesthesia. - We recommend that an adult stay with you for 24 hours following discharge. - We also recommend that you do not drive, make important decision, drink alcoholic beverages, or take any drugs that were not prescribed by your health care provider for at least 24 hours after your discharge time. Follow any additional instructions given to you from your surgeon. Telephone instructions given to ___Isabella Cortes ____and asked if any additional questions and then verbalized understanding. Patient advised to call surgeon office or pre surgery nurse liaison [phone] if any additional questions.
--- OUTSIDE RECORDS SUMMARY | 2024-07-01 02:38 | XMS_ITS | Clinical Summary ---
Author Organization [facility] Address [address] [place] [address] Care Team Providers Care Supervisor Water Treatment Plant Name Role Phone None, Physician Primary Care Provider Unavailabl e Source Comments [facility],non-owned Affiliates and Associated Physician Practices is amultiple site organization consisting of ambulatory clinics and hospital sitesin [place], [place], [place] and [place]. This disclosure is being madepursuant to the Care Everywhere program and may not contain all information available regarding this patient. Last updated 17.[employer] [facility] Allergies No known active allergies Medications * [...] fluticasone propionate (Flonase) 50 MCG/ACT nasal spray [place] 2 (two) sprays into each nostril once [...] [address] [place] [address] Krysten Rausch, KAUR-INBOUND SALES REPRESENTATIVE Refill Request from Last 3 Months Family [...] 68 kg (150 lb) 02/16/2023 9:17 AM STONE CARVER Height 167.6 cm (5' 6 ) 02/16/2023 9:17 AM STONE CARVER Body Mass Index 24.21 02/16/2023 9:17 AM STONE CARVER Plan of Treatment Health Maintenance Due Date [...] complete this [place] [address] [place] [id number] MARIANO MARIANO Care Teams Supervisor Water Treatment Plant Relationship Specialty Start Date End Date None, Physician [address] [place] [address] PCP - General 12/22/22
--- OUTSIDE RECORDS SUMMARY | 2024-07-01 02:39 | XMS_ITS | Data Portability ---
Author Organization [facility], [facility]Contract - [facility] Address [address] [place] [address] Care Team Providers Care Production Recovery Operator Name Role Phone ALYMARILYN CEBALLOS Primary Care Provider Assessment No assessment recorded. Plan of Treatment Reminders Order Date Submit Date Provider Last Modified By Organization Details Last Modified Time Details Appointments None recorded. Lab None recorded. Referral None recorded. Procedures None recorded. Surgeries None recorded. Imaging None recorded. Medication Orders sertraline 100 mg tablet 2022 023 J[id number] [facility] [employer], [address], [place], [address], 17:55:42 Patient TargetsNo targets recorded. Patient InstructionsNo [...] active Not Available Not Available Not Available .5 (28) 1.5 mg-30 mcg (21)/75 mg (7) [...] Address Organization Details Last Updated DateTime 3 27728.4 4 g 98.2 [degF] 82 /min 18 /min 99 % 99 % 24.6 kg/m2 167.64 cm 100 mm[Hg] 60 mm[Hg] Myesha Connor LPN [facility] 3 17:29:22 Social History None recorded. Functional Status None recorded. Mental Status None recorded. Family History Nothing Reported Notes:Denies Medical History Condition Response DEPRESSION (INCLUDING POST ) Y ANXIETY DISORDER Y Gynecological History Statement/Question Response Date of Last Pap Smear Obstetrics History GPAL:G 0 P 0 0 0 0 Past Encounters Encounter ID Performer Location Encounter Start Date Encounter Closed Date Diagnosis/Indication Diagnosis SNOMED-CT Code Diagnosis ICD10 Code Diagnosis Note [id number] Marilyn Aly NP [facility] [address] [facility] [place] [address] 05/12/2022 17:16:37 05/12/2022 18:02:42 Depressive disorder 72769026 F32.A continue with sertraline 100 mg, 2 [...] Name 05/12/2022 1 [place] [id number] Blake Weber [id number] Isabella Weber Notes Date Note Type Note Provider Name and Address Organization Details Recorded Time 05/12/2022 text/html establish care b p 100/60, BMI 24.6, pt needs medication refills, pt has been on sertraline 200 mg since 2018, and is symptoms stable, pt sees service station console operator for bcp Marilyn Aly NP [address], [place], [address], [facility] 05/12/2022 18:00:35 OBGyn Episode No OBEpisode recorded.
--- OUTSIDE RECORDS SUMMARY | 2024-07-01 02:39 | XMS_ITS | Clinical Summary ---
Author Organization [address] Address [address] [place] [address] Care Team Providers Care Dip Guider Stoves Name Role Phone Radha Tavarez Primary Care Provider [phone] [phone] Allergies No known active allergies Medications multivitamin [...] needed. Assessment & Plan (04/17/2023 9:24 AM COOPERATIVE EDUCATION DIRECTOR): Chronic. Managed by ENT. Continue current management with propranolol for prevention and Nurtec and sumatriptan as needed. Follow-up with ENT as scheduled. Update me with any changes. FREEMAN (generalized anxiety disorder) 04/17/2023 Assessment & Plan (05/13/2024 2:47 PM CDT): Chronic and controlled. Continue Zoloft 200 mg daily. Follow-up in 1 year sooner as needed. Assessment & Plan (04/17/2023 9:23 AM COOPERATIVE EDUCATION DIRECTOR): Chronic and controlled. Continue Zoloft 200 mg [...] needed. Assessment & Plan (04/17/2023 9:24 AM COOPERATIVE EDUCATION DIRECTOR): Chronic and controlled. Continue Zoloft 200 mg [...] physicals. Assessment & Plan (04/17/2023 9:24 AM COOPERATIVE EDUCATION DIRECTOR): Health Maintenance: -PCV20: N/A -Tdap vaccine: 2019 [...] Description 05/13/2024 2:30 PM CDT Office Visit [facility] Family Medicine [address] [place] [phone] Radha Tavarez PA Routine adult health [...] on file Legal Sex Female 12:21 PM COOPERATIVE EDUCATION DIRECTOR Gender Identity Female 04/14/2023 2:49 PM COOPERATIVE EDUCATION DIRECTOR Sexual Orientation Straight 04/14/2023 2: 49 PM COOPERATIVE EDUCATION DIRECTOR Obstetrics History Last Filed Vital Signs Vital [...] Most Recently Relevant to Health Maintenance Insurance [employer] ACCESS Care Teams Dip Guider Stoves Relationship Specialty Start Date End Date Radha Tavarez PA [address] [place], [place] [id number] PCP - General Family Medicine 04/04/23
--- OUTSIDE RECORDS SUMMARY | 2024-07-01 02:39 | XMS_ITS | Data Portability ---
Author Organization [facility] [place] Address [address] [place] [address] [address] [place] [address] Care Team Providers Care Blender Snuff Name Role Phone KATH SIMON Primary Care Provider Assessment Encounter Date Assessment Date Assessment LastModified by Organization Details LastModified Time 12/29/2022 12/29/2022 Annual gynecological exam performed. Patient will come back in a year unless there are new symptoms. Not available 12/29/2022 10:43:03 02/09/2024 02/09/2024 Annual gynecological exam performed. Patient will come back in a year unless there are new symptoms. [email or web address] Not available 02/09/2024 11:04:31 Plan of Treatment Reminders Order Date Submit Date Provider Last Modified By Organization Details Last Modified Time Details Appointments SURG Suction D&C 2024 12:00P Kimberly STANLEY MD Not available Not available Not available SURG POST OP 2024 09:45A Kimberly STALNEY MD Not available Not available Not available Lab test, urine 2022 023 [place], [address], [place], [address], 12/29/2022 10:59:31 Referral pelvic floor therapy referral 2023 024 JEM [facility], [address], [address], [place], [address], 02/22/2024 05:35:18 Procedures None recorded. Surgeries dilation & curettage (SURG) 2024 025 [id number], [address], [place], [address], 06/27/2024 12:46:05 Imaging US, obstetric , transvagi nal 2024 025 [email or web address] [place], [address], [address], [place], [address], 06/20/2024 18:27:06 Medication Orders Blisovi Fe 1.5/30 (28) 1.5 mg-30 mcg (21)/75 mg (7) tablet 2022 023 [email or web address] [id number] [facility], [address], [place], [address], 02/09/2024 12:19:22 Patient TargetsNo targets recorded. Patient InstructionsNo instructions recorded. Reason for Referral Pelvic Floor Therapy Referra l for Female stress incontinence Referring Physician: Loren Valderrama, RESIDENTIAL ELECTRICIAN, Encounter Date: 02/09/2024 Results Created Date Observation Date Name Description Value Unit Range Abnormal Flag Note LastModifiedBy Organization Detail LastModifiedTime 12/30/19 23 12/29/2022 IMAGE GUIDE D PAP, REFLE X HPV IF ASCUS ONLY image guided Pap, reflex HPV ASCUS only SEE RESULT S BELOW CASE REPOR T: Cytol ogy Gynec ologi jefferson Repor t Case: [id number] Autho montana g Provi scotty: Loren Valderrama, KLAUDIA Colle cted: 12/29 1547 Order ing Locat ion: [place] Path[facility] log[facility] Recei roberto: 12/30 0948 First Scree n: Arline cadena, Elvis am, CT Speci men: Scree inderjit Pap - Image d, Cervi x STATE MENT OF ADEQU ACY: Satis facto ry for evalu ation Trans forma tion zone compo nent prese nt FINAL DIAGN OSIS: Negat emelia for Intra epith elial Lesio n or Maleli rodríguez (NIL) . Elect aisha oneal alexis [...] d, as giorgi so nted. Not Available [facility] (Lab) [address], [place], [address], 01/04/2023 09:46:52 12/30/19 23 12/29/2022 CT/GC (AYALA) , THINP REP VIAL chlamydia trachomatis, PCR Negati ve negati ve Not Available [facility] (Lab) [address] [facility], [place], [address], 01/04/2023 09:46:53 12/30/19 23 12/29/2022 CT/GC (AYALA) , THINP REP VIAL neisseria gonorrhoeae, PCR Negati ve negati ve Not Available [facility] (Lab) [address], [place], [address], 01/04/2023 09:46:53 12/30/19 23 12/29/2022 TRICH OMONA S VAGIN DL (RRNA ) trichomonas vaginalis ribosomal RNA (rrna) Negati ve negati ve Not Available [facility] (Lab) [address] [facility], [place], [address], 01/04/2023 09:46:54 12/30/19 23 12/29/2022 pregn kolton test, urine HCG negati ve Not Available [place] [address], [place], [address], 12/29/2022 10:56:26 06/21/19 25 06/20/2024 US, obste tric, trans vagin al No observ ation record ed. [facility] [address], [place], [address], 06/20/2024 13:54:18 06/21/19 25 06/20/2024 US, obste tric, follo w-up No observ ation record ed. [facility] [address], [place], [address], 06/25/2024 11:24:19 Result Notes None recorded. Procedures Surgical History Date Name Laterality Status Provider Name and Address Organization Details Recorded Time 12/29/2022 Date of Last Pap Smear completed Meli Morejon [facility] 02/09/2024 11:05:55 Imaging Results Imaging Date Name Status LastModified by Organization Details LastModified Time 06/20/2024 US, obstetric, transvaginal completed [facility] [address], [place], [address], 06/20/2024 13:54:18 06/20/2024 US, obstetric, follow-up completed [email or web address] Radha [address], [place], [address], 06/25/2024 11:24:19 Procedure Notes None recorded. Medical Equipment None [...] completed Not Available Not Available Not Available 1.5 (28) 1.5 mg-30 mcg (21)/75 mg (7) tablet TAKE 1 TABLET BY MOUTH EVERY DAY 02/08 completed Not Available Not Available Not Available sertraline 200mg daily 02/05 completed Not Available Not Available Not Available [facility] ODT 75 mg disintegrat ing tablet active Not Available Not Available N ot Available Vitals Date Recorded Body weight Body mass index (BMI) Body height Systolic blood pressure Diastolic blood pressure Provider Name and Address Organization Details Last Updated DateTime 12/29/2022 94134.88 g 24.4 kg/m2 167.64 cm 119 mm[Hg] 85 mm[Hg] Mayte Brennan [facility] 10:47:27 Date Recorded Body height Body mass index (BMI) Body weight Systolic blood pressure Diastolic blood pressure Provider Name and Address Organization Details Last Updated DateTime 02/09/2024 167.64 cm 24.4 kg/m2 25253.45 g 119 mm[Hg] 83 mm[Hg] Meli Morejon [facility] 4 12:19:16 Date Recorded Body height Body mass index (BMI) Body weight Systolic blood pressure Diastolic blood pressure Provider Name and Address Organization Details Last Updated DateTime 06/27/2024 167.64 cm 24.5 kg/m2 30287.04 g 119 mm[Hg] 80 mm[Hg] Jazlyn Jairo [facility] 5 10:25:36 Social History Question Answer Notes LastModified by Organizat ion Details LastModified Time Tobacco Smoking Status Never Smoker Mayte Vallese lyon, [facility] 12/29/2022 10:50:07 Do You Have An Advance Directive? No Information not available 12/29/2022 What Is Your Level Of Alcohol Consumption? Occasional Information not available 12/29/2022 How Many Years Have You Consumed Alcohol? 4 [email or web address] Information not available 02/09/2024 Are You Blind [...] Or The Highest Degree You Have Received? 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 No Information not available 12/29/2022 Do You Use Protection During Sex? Usually [email or web address] Information not available 02/09/2024 Do You Use Your Seat Belt Or Car Seat Routinely? Yes Information not available 12/29/2022 Do You Have Smoke And Carbon Monoxide Detectors In Your Home? Yes Information not available 12/29/2022 How Much Tobacco Do You Smoke? No Information not available 12/29/2022 Do You Feel Stressed (tense, Restless, Nervous, Or Anxious, Or Unable To Sleep At Night)? [id number] Information not available 12/29/2022 Do You Use [...] 12/29/2022 Mental Status None recorded. Family History Relationship Description Onset Age of this Age Resolved Age Notes LastModified by Organization Details LastModified Time Father No current problems or disability [email or web address] Not available 06/27 10:27:41 Mother No current problems or disability [email or web address] Not available 06/27 10:27:41 Medical History Condition Response Anxiety Disorder Y History of STI Y Headaches Y Depression/ depression Y Gynecological History Statement/Question Response Abnormal Pap N Flow Heavy Date of LMP 04/30/2024 Was last menstrual period normal N STIs/STDs N HPV Vaccine Y Duration of Flow (days) 3 Current Control Method Are cycles usually normal N Sexually Active? Y BCPs Menses Monthly N Age of first menstrual cycle 11 Date of Last Pap Smear 12/29/2022 Sexual Problems? N Desired Control Method BCPs LMP Definite N Obstetrics History GPAL:G 1 P 0 0 1 0 Type Value Spontaneous 1 Living 0 Total 1 Past Encounters Encounter ID Performer Location Encounter Start Date Encounter Closed Date Diagnosis/Indication Diagnosis SNOMED-CT Code Diagnosis ICD10 Code Diagnosis Note [id number] DARWIN Ward [place] [address] [address] 12/29/2022 10:13:38 12/29/2022 11:14:05 Irregular periods 68535546 N92.6 Gynecologi c examination 95562092 Z01.419 WWEBC - OCPhappy with this method [...] questions please call or respond to this email.Rsaheeda roberts was made aware of the patient portal and may obtain a paper copy of today's plan if desired. [facility] ion care management 072263227 Z30.9 [id number] DARWIN Ward [place] [address] [address] 02/09/2024 12:07:15 02/12/2024 16:18:11 Gynecologic examination 31750540 Z01.419 Z11.3 Z11.8 WWEBC - declinedPa p [...] advised. Questions answered. Female str ess incontinence 75971889 N39.3 management options reviewedre commended PFPT , referral placed , questions answered [id number] Ansley Marcano [place] [address] [address] 06/20/2024 09:23:28 06/20/2024 10:15:01 Uncertain viability of 938288276 O36.80X0 Z3A.01 [id number] Gary Stanley MD [place] [address] [address] 06/27/2024 10:13:32 06/28/2024 09:27:21 Missed miscarriage 71033002 O02.1 This patient is a 23 female who presents for [missed discussed the etiology, frequency, natural history, and treatment of this condition. Spent more than 35 minutes talking about the above, as well as, her history, the particular findings of her case, and detail of her the treatment options. We discussed the risk benefits of each option. She understand s the risk include infection and hemorrhage . She understand s a D&C also holds the risk of injury. She understand s that waiting can result in a septic that is even more difficult to treat. We talked about signs and symptoms of infection. She would like to proceed with suction D&C. The patient understand s the procedure. The procedure was described to the patient in great detail. the patient also understand s the risks. The risks were also explained in detail. She understand s that injuries May occur during surgery. She understand s these injuries can result in hospitaliz ation, more surgery, and severe illness. She understand s there is risk of hemorrhage and infection. I spent over 30 minutes on her care in total. Health Concerns Section Related Observation LastModified by Organization Detai ls LastModified Time None Recorded Concern Status LastModified by Organization Details LastModified Time None Recorded Advance Directives Directive N: Payers Encounter Date Sequence Insurance Name Policy Number Policy Rodrigues Covered Member ID Rodrigues Member ID Guarantor Name 12/29/2022 1 [place] [id number] Blake Xavierzomary [id number] Isabella Parkzosek 02/09/2024 1 [place] [id number] Blake Wrzosek [id number] Isabella Hunter Wrzosek 06/20/2024 1 [place] [id number] Sonia Bowie [id number] Isabella Parkzosek 06/27/2024 1 [place] [id number] Sonia Bowie [id number] Isabellaanthony Parkzosek Notes Date Note Type Note Provider Name [...] of abnormal papsdenies hx of DVT/PE, HTN, Stroke/IN, cancer, liver disease, or migraine with aura DARWIN Ward [address], [place], [address], , P.C[facility] 12/29/2022 11:10:47 02/09/2024 text/html Annual GYNReport [...] 12/2022 : DARWIN Corey [address], [place], [address], , P.C. 02/12/2024 14:43:59 06/27/2024 text/html This patient is a 23 female who presents for [missed discussed the etiology, frequency, natural history, and treatment of this condition. Spent more than 35 minutes talking about the above, as well as, her history, the particular findings of her case, and detail of her the treatment options. We discussed the risk benefits of each option. She understands the risk include infection and hemorrhage. She understands a D&C also holds the risk of injury. She understands that waiting can result in a septic that is even more difficult to treat. We talked about signs and symptoms of infection. She would like to proceed with suction D&C. The patient understands the procedure. The procedure was described to the patient in great detail. the patient also understands the risks. The risks were also explained in detail. She understands that injuries May occur during surgery. She understands these injuries can result in hospitalization, more surgery, and severe illness. She understands there is risk of hemorrhage and infection. I spent over 30 minutes on her care in total. Gary Stanley MD [address], [place], [address], , P.C. 06/27/2024 16:39:17 OBGyn Episode No OBEpisode recorded.
--- OUTSIDE RECORDS SUMMARY | 2024-07-01 02:39 | XMS_ITS | Referral Summary ---
Author Organization [address] Address [address] [place] [address] Care Team Providers Care Retail Beauty Specialist Name Role Phone Radha Tavarez Primary Care Provider [phone] [phone] Encounters Date Type Department Care Team Description 05/13/2024 2:30 PM CDT Office Visit [facility] Family Medicine [address] [place] [phone] Radha Tavarez PA Routine adult health [...] needed. Assessment & Plan (04/17/2023 9:24 AM TILER): Chronic. Managed by ENT. Continue current management with propranolol for prevention and Nurtec and sumatriptan as needed. Follow-up with ENT as scheduled. Update me with any changes. FREEMAN (generalized anxiety disorder) 04/17/2023 Assessment & Plan (05/13/2024 2:47 PM CDT): Chronic and controlled. Continue Zoloft 200 mg daily. Follow-up in 1 year sooner as needed. Assessment & Plan (04/17/2023 9:23 AM TILER): Chronic and controlled. Continue Zoloft 200 mg [...] needed. Assessment & Plan (04/17/2023 9:24 AM TILER): Chronic and controlled. Continue Zoloft 200 mg [...] physicals. Assessment & Plan (04/17/2023 9:24 AM TILER): Health Maintenance: -PCV20: N/A -Tdap vaccine: 2020 [...] on file Legal Sex Female 12:21 PM TILER Gender Identity Female 04/14/2023 2:49 PM TILER Sexual Orientation Straight 04/14/2023 2: 49 PM TILER Last Filed Vital Signs Vital Sign Reading [...] SCRIBED Pap test normal Thin Prep-Cervical/ Endocervical [facility] Provider MD HEALTH MAINTENANCE Final Result from Last 3 Months or Most Recently Relevant to Health Maintenance Insurance [employer] ACCESS Care Teams Retail Beauty Specialist Relationship Specialty Start Date End Date Radha Tavarez PA [address] [place], [place] [address] PCP - General Family Medicine 04/04/23
[2024-07-01 10:52] VITALS: BP 105/68; PULSE 64; TEMP 36.8; O2SAT 100; BMI 24.8
[2024-07-01] MEDS: ACETAMINOPHEN 500 MG TABLET 1000 MG PO (11:30)
--- NOTE | 2024-07-01 11:32 | WPDANESEPPF ---
Anes - Initial Pre Proc Eval Procedure: Operation Date: 07/01/24 12:00 Proposed Procedures p Suction Dilatation and Curettage - Gary Stanley MD Date/Time: 07/01/24 11:32 Surgeon: Gary Stanley MD Pre Op Diagnosis: missed AB Patient Data Age: 23 Gender: F Height: 1.68 m Weight: 69.8 kg Last Vital Signs Temp 36.8 C 07/01/24 10:52 Pulse 64 07/01/24 10:52 BP 105/68 07/01/24 10:52 Pulse Ox 100 07/01/24 10:52 O2 Del Method Room Air 07/01/24 10:52 Allergies Allergy/AdvReac Type Severity Reaction Status Date / Time No Known Allergies Allergy Verified 07/01/24 10:51 Home Medications ?Medication ?Instructions ?Recorded ?Confirmed ?Type sertraline 200 mg capsule 200 mg PO DAILY 11/14/22 07/01/24 History vit no.95-ferrous 1 tablet PO DAILY 06/27/24 06/27/24 History fumarate 28 mg-folic acid 800 mcg tablet () Patient hx anesthesia problems: none Family hx anesthesia problems: none Results Review: All pre-operative results and documents have been reviewed as part of the pre-operative evaluation. [facility] Social History Social History Smoking status: Never smoker Alcohol use details: Have not drank since February Substance use: never Substance use type: does not use Living arrangements: with family Anes - Eval Final PreProcedure Day of Procedure 07/01/24 11:32 Patient weight: normal Heart: regular rate and rhythm Lungs: clear to auscultation and normal air movement Airway: Mallampati scale class II Neurological: alert and oriented Last oral intake: >/= 8 hours ASA classification: I Emergent: no Anesthetic plan: proceed Anesthesia type and monitoring: general GIVS and standard monitoring Results Review: All pre-operative results and documents have been reviewed as part of the pre-operative evaluation. Informed Consent: The patient's anesthetic plan and its attendant risks and benefits were discussed with the patient/family/POA. Questions were solicited and answers provided to the satisfaction of the patient/family/POA.
[2024-07-01] MEDS: LACTATED RINGERS 1,000 ML 30 ML IV CONT (11:58)
--- NOTE | 2024-07-01 12:04 | PM.IMHP ---
H&P: HPI History of Present Illness Date/Time: 07/01/24 12:04 Chief Complaint: Missed miscarriage Narrative: This patient is a 23-year-old female with missed miscarriage. We agreed to perform suction D&C. She understands risks, benefits, and alternatives. She has completed the informed consent process and is ready to proceed. The patient understands the details of the procedure. The procedure has been explained in detail. She understands the risks. She understands that injuries may occur that result in hospitalization, more surgery, and severe illness. She understands risk of hemorrhage and infection. She denies any chest pain or shortness of breath. She denies any nausea, vomiting, fever, chills. Review of Systems Review of Systems: All systems reviewed & are unremarkable except as noted in HPI and below Constitutional: Constitutional: Denies chills, Denies fatigue, Denies fever(s) and Denies weakness Eyes: Eyes: Denies blurry vision, Denies change in vision, Denies loss of peripheral vision, Denies loss of vision, Denies other visual disturbances and Denies eye pain ENT: Denies vertigo, Denies dizziness, Denies hearing loss, Denies mouth pain, Denies nasal obstruction, Denies neck mass and Denies neck pain Cardiovascular: Cardiovascular: Denies chest pain, Denies diaphoresis, Denies syncope, Denies leg edema and Denies dyspnea Respiratory: Respiratory: Denies chest congestion, Denies cough, Denies hemoptysis, Denies dyspnea and Denies wheezing Gastrointestinal: Gastrointestinal: Denies abdominal pain, Denies constipation, Denies diarrhea, Denies nausea and Denies vomiting Genitourinary: Genitourinary: Denies hematuria, Denies change in libido, Denies nocturia, Denies genital lesions, Denies flank pain and Denies urinary urgency Musculoskeletal: Musculoskeletal: Denies abnormal gait, Denies back pain, Denies myalgias, Denies arthralgias, Denies joint swelling, Denies muscle weakness and Denies neck pain Integumentary/Breasts: Skin/Breast: Denies swelling, Denies breast pain, Denies breast mass, Denies dry skin, Denies nipple discharge, Denies unusual bruising and Denies jaundice Neurologic: Denies Neuro-related abnormal movements, Denies Abnormal speech present, Denies abnormal gait, Denies behavioral changes, Denies confusion, Denies vertigo, Denies dizziness, Denies syncope, Denies loss of vision, Denies memory loss, Denies convulsions and Denies weakness Psychiatric: Psychiatric: Denies abnormal sleep pattern, Denies behavioral changes, Denies change in libido, Denies confusion, Denies depression, Denies anhedonia and Denies memory loss Endocrine: Endocrine: Reports no additional endocrine complaints, Denies change in libido and Denies fatigue Hematologic/Lymphatic: Hematologic/Lymphatic: Reports no additional hematologic/lymphatic complaints Allergic/Immunologic: Allergic/Immunologic: Reports no additional allergic/immunologic complaints and Denies wheezing FOR[facility], [facility] Social History Social History Smoking status: Never smoker Alcohol use details: Have not drank since February Substance use: never Substance use type: does not use Living arrangements: with family Meds Home Medications and Allergies Home Medications ?Medication ?Instructions ?Recorded ?Confirmed ?Type sertraline 200 mg capsule 200 mg PO DAILY 11/14/22 07/01/24 History vit no.95-ferrous 1 tablet PO DAILY 06/27/24 06/27/24 History fumarate 28 mg-folic acid 800 mcg tablet () Allergies Allergy/AdvReac Type Severity Reaction Status Date / Time No Known Allergies Allergy Verified 07/01/24 10:51 Vital Signs Vital Signs - 24 hr 07/01/24 10:52 Temperature 98.3 F Pulse Rate 64 Blood Pressure 105/68 Pulse Oximetry 100 Oxygen Delivery Room Air Exam Const: General: cooperative, healthy appearing, comfortable and no acute distress Orientation/consciousness: oriented to person, oriented to place and oriented to time HENMT: Head: normal to inspection Ears: external ears normal Face/Nose/Sinus: Normal external nose present and normal facial exam Face and sinus: normal facial exam Eyes: General: appearance normal, both eyes and all related structures Neck: Neck: normal visual inspection, trachea midline and supple Resp: Auscultation: clear to auscultation bilaterally, no crackles, no rales, no rhonchi and no wheezes Cardio: Rate: regular rate Rhythm: regular rhythm Heart sounds: no click, no murmurs and no rubs GI: GI Palp: No abdominal tenderness, No Soft to palpation, No Tenderness to palpation present (GI) and No Palpable mass present Auscultation: normal bowel sounds Skin: General skin exam: normal color and no rashes or lesions noted Neuro: General: oriented to person, oriented to place and oriented to time Extrem: General: normal to inspection, no joint enlargement, no clubbing, cyanosis or edema, no pedal edema and no calf tenderness Psych: Appearance: grossly normal Mental Status: mental status grossly normal Speech and movement: Normal speech and movement present Assessment and Plan Assessment and plan (1) Missed : Code(s): O02.1 - Missed Status: Acute Plan This patient is a 23-year-old female with missed miscarriage. We agreed to perform suction D&C. She understands risks, benefits, and alternatives. She has completed the informed consent process and is ready to proceed.
--- NOTE | 2024-07-01 12:05 | WPDHPUPDATE1 ---
History and Physical Update Update Date/Time: 07/01/24 12:05 History and Physical has been reviewed, including an updated exam of the patient. There are NO changes in the patient's condition. Risks, benefits, and alternatives have been discussed and questions answered. Patient agrees to proceed with procedure.
[2024-07-01] MEDS: LIDOCAINE 1% LOCAL INJ 10 ML VIAL INFILTRATE (12:19)
--- NOTE | 2024-07-01 12:28 | P.OP_ITS ---
Procedure Note - Detailed Date of Procedure 07/01/24 Pre-op Diagnosis Incomplete Post-op Diagnosis Same Procedure Performed Suction D&C Surgeon Gary Stanley MD Anesthesia MAC Indications missed Findings normal-appearing vulva vagina and cervix to. Small amount of products conception within the uterus. 8 cm uterus Description of Procedure the patient was taken the operating room. She was prepped and draped in dorsal lithotomy position after induction of mac anesthesia. A speculum was placed in the vagina. Cervix grasped with tenaculum. The cervix was dilated to about 1 cm Using Friedman dilators. A 8. Upper Sorbian curved curette was used to perform suction D&C. The curette was introduced and vacuum was applied. The curette was removed over all surfaces of the intrauterine cavity multiple times. This was done until all the surfaces were clear and had the familiar grainy texture they can be felt through the instrument. A sharp curette was then used to curettage all the surfaces. The suction cup was then reapplied 1 more time to remove any debris. The instruments were removed. The speculum and tenaculum were removed. The patient tolerated the procedure well. She was taken recovery room stable condition. Estimated Blood Loss 50 Drains No Packing No Pathology Yes Complications No immediate complications Condition Stable Disposition PACU
[2024-07-01 12:43] VITALS: BP 103/70; PULSE 88; RESP 14; O2SAT 96
[2024-07-01] MEDS: oxyCODONE HCL (*CRX) 5 MG TAB IR PO (13:07)
[2024-07-01 13:13] VITALS: BP 112/66; PULSE 71; RESP 14
[2024-07-01 13:43] VITALS: BP 108/65; PULSE 74; RESP 14
== END 2024-07-01 14:00 | disposition home or self-care (01) ==
PROVIDERS: PCP Physician Assistant; Visit Provider Obstetrics & Gynecology
PROC: (CPT 59820; principal; 2024-07-01 12:00)
DX: O02.1 Missed abortion (principal)
CPT/HCPCS: 59820; 88305; A9270; J1100; J2003; J2210; J2250; J2704; J3010; J7120

== ENCOUNTER 2025-01-10 08:15 | Outpatient (CLI) | payer BC, SELFPAY ==
[2025-01-10 10:24] LABS: Free T4 Free Thyroxine 0.80 ng/dL (0.78-2.19)
[2025-01-10 10:38] LABS: Thyroid Stimulating Hormone 1.750 uIU/mL (0.465-4.680)
[2025-01-11 07:09] LABS: FSH 3.6 mIU/mL (.); LH 5.6 mIU/mL (.)
== END 2025-01-10 08:16 | disposition home or self-care (01) ==
LOC: ANHLAB 08:16
PROVIDERS: Visit Provider Nurse Practitioner Family
DX: N92.6 Irregular menstruation, unspecified (principal)
CPT/HCPCS: 36415; 82627; 83001; 83002; 83498; 83525; 84146; 84439; 84443

== ENCOUNTER 2025-02-10 13:11 | Outpatient (CLI) | payer BC, SELFPAY ==
[2025-02-10 14:27] LABS: Beta HCG Quantitative < 2.39 mIU/ML
== END 2025-02-10 13:12 | disposition home or self-care (01) ==
LOC: ANHLAB 13:14
PROVIDERS: Visit Provider Nurse Practitioner Family
DX: N92.6 Irregular menstruation, unspecified (principal)
CPT/HCPCS: 36415; 84702